=== PATIENT | female | born 1995 | race Caucasian/White ===

== ENCOUNTER 2019-06-23 06:34 | Day surgery (SDC) | payer BC ==
[~2019-06-23 06:34] MED LIST: Lactated Ringers 1,000 ML IV SCH
[2019-06-23] MEDS ORDERED: Midazolam 1 MG/ML 2 ML SDV ONE (06:59)
[2019-06-23] MEDS ORDERED: Propofol 200 MG/20 ML SDV ONE (06:59)
[2019-06-23] MEDS ORDERED: fentaNYL 250 MCG/5 ML SDV ONE ×2 (06:59→08:44)
[2019-06-23] MEDS ORDERED: Glycopyrrolate 0.2 MG/ML SDV ONE (07:00)
[2019-06-23] MEDS ORDERED: Rocuronium 100 MG/10 ML Syringe ONE (07:00)
[2019-06-23] MEDS ORDERED: Ketorolac 30 MG/ML SDV ONE (07:00)
[2019-06-23] MEDS ORDERED: Neostigmine Methylsulfate 1 MG/ML 5 ML Syringe ONE (07:00)
[2019-06-23] MEDS ORDERED: Ondansetron 4 MG/2 ML SDV ONE (07:00)
[2019-06-23] MEDS ORDERED: Dexamethasone 4 MG/ML 5 ML MDV ONE (07:00)
[2019-06-23] MEDS ORDERED: Lidocaine 2% 5 ML SDV ONE ×2 (07:00→07:06)
--- NOTE | 2019-06-23 07:00 | PCM.PREANE ---
Preanesthetic Assessment - Anesthesia/Transfusion/Family Hx Anesthesia History: Prior Anesthesia Without Reaction Family History of Anesthesia Reaction: No Transfusion History: No Prior Transfusion(s) Intubation History: Unknown - Review of Systems General: No Symptoms Pulmonary: No Symptoms Cardiovascular: No Symptoms Gastrointestinal: No Symptoms Neurological: No Symptoms Other: Reports: None - Physical Assessment Height: 5 ft 5 in Weight: 129.274 kg ASA Class: 2 Mental Status: Alert & Oriented x3 Airway Class: Mallampati = 2 Dentition: Reports: Normal Dentition Thyro-Mental Finger Breadths: 3 Mouth Opening Finger Breadths: 3 ROM/Head Extension: Full Lungs: Clear to Auscultation, Normal Respiratory Effort Cardiovascular: Regular Rate, Regular Rhythm - Allergies Allergies/Adverse Reactions: Allergies Allergy/AdvReac Type Severity Reaction Status Date / Time No Known Allergies Allergy Verified 06/19/19 07:55 - Blood Blood Available: No - Anesthesia Plan Pre-Op Medication Ordered: None - Acknowledgements Anesthesia Type Planned: General Anesthesia Pt an Appropriate Candidate for the Planned Anesthesia: Yes Alternatives and Risks of Anesthesia Discussed w Pt/Guardian: Yes Pt/Guardian Understands and Agrees with Anesthesia Plan: Yes PreAnesthesia Questionnaire - Past Health History Medical/Surgical History: Denies Medical/Surgical History HEENT History: Reports: Other (See Below) Other HEENT History: wears glasses Cardiovascular History: Reports: None Respiratory History: Reports: None Gastrointestinal History: Reports: None Genitourinary History: Reports: Renal Calculus Musculoskeletal History: Reports: None Neurological History: Reports: None Psychiatric History: Reports: Depression Endocrine/Metabolic History: Reports: Obesity/BMI 30+ (BMI 47.4) Hematologic History: Reports: None Immunologic History: Reports: None Oncologic (Cancer) History: Reports: None Dermatologic History: Reports: None - Past Surgical History Head Surgeries/Procedures: Reports: None HEENT Surgical History: Reports: Tonsillectomy Cardiovascular Surgical History: Reports: None Respiratory Surgical History: Reports: None GI Surgical History: Reports: None Female Surgical History: Reports: Kidney stone extraction, Ureteral Stent Endocrine Surgical History: Reports: None Neurological Surgical History: Reports: None Musculoskeletal Surgical History: Reports: None Oncologic Surgical History: Reports: None Dermatological Surgical History: Reports: None - SUBSTANCE USE Smoking Status *Q: Never Smoker Recreational Drug Use History: No - HOME MEDS Home Medications: Home Meds Citalopram Hydrobromide [Celexa] 20 mg PO DAILY 06/19/19 [History] l-Norgest/E.estradion-E.estrad [Camrese 0.15-0.03-0.01 MG] 1 tab PO DAILY [History] - CURRENT (IN HOUSE) MEDS Current Meds: Current Medications Lactated Ringer's (Ringers, Lactated) 1,000 mls @ 100 mls/hr IV ASDIRECTED EYAL
[2019-06-23] MEDS ORDERED: Scopolamine 1.5 MG Transdermal Patch TRDERM PRN (07:01)
[2019-06-23] MEDS ORDERED: Fluorescein 5 ML Vial ONE (07:57)
[2019-06-23] MEDS ORDERED: Vasopressin 20 Units/1 ML MDV ONE (07:57)
[2019-06-23] MEDS ORDERED: Bupivacaine 0.25% 10 ML SDV ONE (07:57)
[2019-06-23] MEDS ORDERED: Sugammadex Sodium 200 MG/2 ML VIAL ONE (09:37)
[2019-06-23 10:39] VITALS: BP 138/56; PULSE 112
[2019-06-23] MEDS ORDERED: Acetaminophen/HYDROcodone 325-10 MG Tab PO ONE (10:50)
[2019-06-23] MEDS ORDERED: Acetaminophen/HYDROcodone 325-10 MG Tab ONE (10:52)
--- NOTE | 2019-06-23 12:18 | PCM.OPNOTE ---
- General Post-Op/Procedure Note Date of Surgery/Procedure: 06/23/19 Operative Procedure(s): D & C hysteroscopy. Diagnostic Laparoscopy Findings: Uterus showed polyp in the lower uterine segment Laparoscopy showed martínez endometriotic deposit on the bladder peritoneum X2 Right posterior fossa with 1cm reddish deposit close to right urethra Pre Op Diagnosis: Abnormal Uterine bleeding. Chronic pelvic pain Post-Op Diagnosis: same Anesthesia Technique: General ET Tube Primary Surgeon: Kiya Martinez Secondary Surgeon: Kiya Martinez Anesthesia Provider: Emre Maurice Pathology: Endometrial biopsy and ECC EBL in mLs: 5 Complications: None Condition: Good Free Text/Narrative:: Intake & Output 06/22/19 06/23/19 06/23/19 22:59 06:59 14:59 Intake Total 1300 Output Total 15 Balance 1285
--- NOTE | 2019-06-24 02:23 | OR ---
SURGEON: FREDI NOE DATE OF PROCEDURE:06/23/2019 PREOPERATIVE DIAGNOSES: 1. A 23-year-old para 0 with abnormal uterine bleeding. 2. Chronic pelvic pain. POSTOPERATIVE DIAGNOSES: 1. Abnormal uterine bleeding. 2. Endometrial polyp. 3. Chronic pelvic pain with possible endometriosis. PROCEDURE: Dilatation and curettage, hysteroscopy, Diagnostic laparoscopy. ANESTHESIA: General. IV FLUIDS: 1000. DISTENDING MEDIA: Normal saline. DEFICIT: 225. ESTIMATED BLOOD LOSS: Minimal. URINE OUTPUT: Minimal. SPECIMEN: Endometrial lining and polyp. FINDINGS: Examination under anesthesia revealed a normal-sized anteverted uterus. Normal adnexa. Hysteroscopy showed a small polyp in the lower uterine segment arising from the posterior wall. Bilateral ostia were visualized. Laparoscopy showed normal right and left ovary. There was a slight possible endometriotic deposit in the anterior bladder reflection. In the posterior cul-de-sac there was some brownish reddish deposit , which was close to the left ureter. INDICATION: She is a 23-year-old complaining of pelvic pain which was worse with intercourse and also with periods. She also complains of having abnormal uterine heavy bleeding despite being on OCPs. The patient had an ultrasound done which showed thickened endometrial stripe, suspected possible polyp. She was given the option of female ultrasound versus D and C, hysteroscopy, and wanted to go ahead with the D and C, hysteroscopy . She was also consented for a Diagnostic laparoscopy t evaluate for endometriosis , she was given the opportunity to ask questions and all questions answered. PROCEDURE IN DETAIL: The patient was taken to the operating room, where general anesthesia was performed without difficulty. She was placed in the dorsal lithotomy position with Hima stirrups. An examination under anesthesia revealed a normal anteverted uterus. The patient was prepared and draped in the normal sterile fashion. A bivalved speculum was used to expose the cervix. An Allis was used to grasp the anterior lip of the cervix. The uterus was dilated to accommodate the MyoSure hysteroscope. The MyoSure hysteroscope was placed in under direct visualization. The MyoSure was used to curette the polyp in the posterior uterine wall, and after that the uterus was inspected and noted to be without polyp. Endocervical currettings and endometrial curretting was performed. Uterine manipulator was placed.Then attention was placed to the abdomen where umbilical incision was made after injection of 0.25% Marcaine. then a 5 mm incision was made with a scalpel and expanded with the hemostats. The trocar was placed in the umbilical incision with direct entry. Entry into the peritoneum was confirmed with low pressure. Pneumoperitoneum was obtained up to 15 mmHg of CO2. Then, the patient was placed in Trendelenburg position. A right and left lower quadrant incisions were made 2 fingerbreadths superior to and medial to the anterior superior iliac spine. Trocars were placed in with direct entry. The bowel was retracted from the operative field. The uterus was elevated. The above-noted finding was noted. Due to the proximity of the deposits to vital structures, no biopsy was taken. The pneumoperitoneum was released. The trocars were removed, and the incision was stitched with 3-0 Monocryl. The uterine manipulator was removed. All the instrument and pad counts were correct x2. The patient tolerated the procedure well and was taken to recovery room in stable condition. SINDY MAC /[id number] MTDD
== END 2019-06-23 11:16 | disposition home or self-care (01) ==
LOC: MW.SDS 06:34
PROVIDERS: ATTEND Obstetrics & Gynecology
DX: N84.0 Polyp of corpus uteri (principal); N88.8 Other specified noninflammatory disorders of cervix uteri; Z79.899 Other long term (current) drug therapy
CPT/HCPCS: 36415; 49320; 58558; 84703; 85027; 88305; A9270; J1100; J1885; J2001; J2250; J2405; J2704; J3010; J3490; J7120; 00840

== ENCOUNTER 2019-12-02 16:51 | Emergency (ER) | payer BC ==
[2019-12-02 17:04] VITALS: BP 152/90; PULSE 89
--- NOTE | 2019-12-02 17:51 | EDM.PDOC ---
ED [facility] GENERAL MEDICAL PROBLEM - General Chief Complaint: Abdominal Pain Stated Complaint: ABNOMINAL PAIN Time Seen by Provider: 12/02/19 17:49 Source of Information: Reports: Patient History Limitations: Reports: No Limitations - History of Present Illness INITIAL COMMENTS - FREE TEXT/NARRATIVE: Patient is a 24-year-old female with a past medical history of obesity presenting with a chief complaint of lower pelvic cramping. Duration of symptoms of been 2 days. Patient reports associated spotting. No radiation of symptoms. Patient states she was found to be last week about 5 weeks . Patient states this is her first child. Patient denies any fevers, chills, vaginal discharge. Patient has not had a prior ultrasound. Patient denies any urinary symptoms. In addition to that documented in the HPI above, the additional ROS was obtained : Constitutional: Denies fevers or chills Eyes: Denies vision changes ENMT: Denies sore throat CV: Denies chest pain Resp: Denies SOB GI: Denies vomiting or diarrhea : Denies painful urination MSK: Denies recent trauma Skin: Denies new rashes Neuro: Denies new numbness or tingling or weakness Endocrine: Denies unexpected weight loss Heme: Denies bleeding disorders I have reviewed the triage vital signs Const: Well nourished, well developed, appears stated age Eyes: PERRL, no conjunctival injection HENT: NCAT, Neck supple without meningismus CV: RRR, Warm, well-perfused extremities RESP: CTAB, Unlabored respiratory effort GI: soft, non-tender, non-distended, no masses MSK: No gross deformities appreciated Skin: Warm, dry. No rashes Neuro: Alert, shoe salesman II-XII grossly intact. Sensation and motor function of extremities grossly intact. Psych: Appropriate mood and affect Assessment and plan Patient is a 24-year-old female with a chief complaint of lower pelvic pain. Patient labs and ultrasound demonstrate early IUP. Given that the patient is approximately 5 weeks lack of heart rate may be within normal limits. Patient will need repeat ultrasound and hCG levels to rule out threatened . Patient given return precautions and instructions to follow-up with SEPARATOR OPERATOR. All questions addressed and answered. Patient agrees with plan Abdomen Pain Score (Numeric/FACES): 5 - Related Data Allergies Allergy/AdvReac Type Severity Reaction Status Date / Time No Known Allergies Allergy Verified 06/19/19 07:55 Home Meds: Home Meds . [No Known Home Meds] 12/02/19 [History] Past Medical History - Past Health History Medical/Surgical History: Denies Medical/Surgical History HEENT History: Reports: Other (See Below) Other HEENT History: wears glasses Cardiovascular History: Reports: None Respiratory History: Reports: None Gastrointestinal History: Reports: None Genitourinary History: Reports: Renal Calculus Musculoskeletal History: Reports: None Neurological History: Reports: None Psychiatric History: Reports: Depression Endocrine/Metabolic History: Reports: Obesity/BMI 30+ Hematologic History: Reports: None Immunologic History: Reports: None Oncologic (Cancer) History: Reports: None Dermatologic History: Reports: None - Past Surgical History Head Surgeries/Procedures: Reports: None HEENT Surgical History: Reports: Tonsillectomy Cardiovascular Surgical History: Reports: None Respiratory Surgical History: Reports: None GI Surgical History: Reports: None Female Surgical History: Reports: Kidney stone extraction, Ureteral Stent Endocrine Surgical History: Reports: None Neurological Surgical History: Reports: None Musculoskeletal Surgical History: Reports: None Oncologic Surgical History: Reports: None Dermatological Surgical History: Reports: None Social & Family History - Tobacco Use Smoking Status *Q: Never Smoker Second Hand Smoke Exposure: No - Caffeine Use Caffeine Use: Reports: None - Recreational Drug Use Recreational Drug Use: No ED ROS GENERAL - Review of Systems Review Of Systems: See Below ED EXAM, GI/ABD - Physical Exam Exam: See Below Course - Vital Signs Last Recorded V/S: Last Vital Signs Temp 35.7 C 12/02/19 17:03 Pulse 89 12/02/19 17:03 Resp 18 12/02/19 17:03 BP 152/90 H 12/02/19 17:03 Pulse Ox 98 12/02/19 17:03 - Orders/Labs/Meds Labs: Laboratory Tests 12/02/19 12/02/19 12/02/19 Range/Units 18:04 18:04 18:04 WBC 10.80 (4.0-11.0) K/uL RBC 4.47 (4.30-5.90) M/uL Hgb 13.5 (12.0-16.0) g/dL Hct 41.1 (36.0-46.0) % MCV 91.9 (80.0-98.0) fL MCH 30.2 (27.0-32.0) pg MCHC 32.8 (31.0-37.0) g/dL RDW Std Deviation 45.5 (28.0-62.0) fl RDW Coeff of Nikki 14 (11.0-15.0) % Plt Count 310 (150-400) K/uL MPV 9.90 (7.40-12.00) fL Neut % (Auto) 74.6 (48.0-80.0) % Lymph % (Auto) 19.5 (16.0-40.0) % [place] % (Auto) 5.2 (0.0-15.0) % Eos % (Auto) 0.6 (0.0-7.0) % Baso % (Auto) 0.1 (0.0-1.5) % Neut # (Auto) 8.1 H (1.4-5.7) K/uL Lymph # (Auto) 2.1 (0.6-2.4) K/uL [place] # (Auto) 0.6 (0.0-0.8) K/uL Eos # (Auto) 0.1 (0.0-0.7) K/uL Baso # (Auto) 0.0 (0.0-0.1) K/uL Nucleated RBC % 0.0 /100WBC Nucleated RBCs # 0 K/uL Sodium 137 (136-145) mmol/L Potassium 3.9 (3.5-5.1) mmol/L Chloride 102 (98-107) mmol/L Carbon Dioxide 24.0 (21.0-32.0) mmol/L BUN 9 (7.0-18.0) mg/dL Creatinine 0.7 (0.6-1.0) mg/dL Est Cr Clr Drug Dosing 107.93 mL/min Estimated GFR (MDRD) > 60.0 ml/min Glucose 95 (74-106) mg/dL Calcium 9.4 (8.5-10.1) mg/dL Total Bilirubin 0.4 (0.2-1.0) mg/dL AST 22 (15-37) IU/L ALT 47 (14-63) IU/L Alkaline Phosphatase 91 (46-116) U/L Total Protein 8.3 H (6.4-8.2) g/dL Albumin 4.1 (3.4-5.0) g/dL Globulin 4.2 H (2.6-4.0) g/dL Albumin/Globulin Ratio 1.0 (0.9-1.6) HCG, Quant 4253.0 mIU/mL Blood Type Antibody Screen 12/02/19 Range/Units 18:04 WBC (4.0-11.0) K/uL RBC (4.30-5.90) M/uL Hgb (12.0-16.0) g/dL Hct (36.0-46.0) % MCV (80.0-98.0) fL MCH (27.0-32.0) pg MCHC (31.0-37.0) g/dL RDW Std Deviation (28.0-62.0) fl RDW Coeff of Nikki (11.0-15.0) % Plt Count (150-400) K/uL MPV (7.40-12.00) fL Neut % (Auto) (48.0-80.0) % Lymph % (Auto) (16.0-40.0) % [place] % (Auto) (0.0-15.0) % Eos % (Auto) (0.0-7.0) % Baso % (Auto) (0.0-1.5) % Neut # (Auto) (1.4-5.7) K/uL Lymph # (Auto) (0.6-2.4) K/uL [place] # (Auto) (0.0-0.8) K/uL Eos # (Auto) (0.0-0.7) K/uL Baso # (Auto) (0.0-0.1) K/uL Nucleated RBC % /100WBC Nucleated RBCs # K/uL Sodium (136-145) mmol/L Potassium (3.5-5.1) mmol/L Chloride (98-107) mmol/L Carbon Dioxide (21.0-32.0) mmol/L BUN (7.0-18.0) mg/dL Creatinine (0.6-1.0) mg/dL Est Cr Clr Drug Dosing mL/min Estimated GFR (MDRD) ml/min Glucose (74-106) mg/dL Calcium (8.5-10.1) mg/dL Total Bilirubin (0.2-1.0) mg/dL AST (15-37) IU/L ALT (14-63) IU/L Alkaline Phosphatase (46-116) U/L Total Protein (6.4-8.2) g/dL Albumin (3.4-5.0) g/dL Globulin (2.6-4.0) g/dL Albumin/Globulin Ratio (0.9-1.6) HCG, Quant mIU/mL Blood Type O NEGATIVE Antibody Screen NEGATIVE Departure - Departure Time of Disposition: 19:30 Disposition: Home, Self-Care 01 Clinical Impression: Abdominal pain - Discharge Information Instructions: Abdominal Pain, Adult, [id number] Referrals: Dayna Wylie DO [Primary Care Provider] - Forms: ED Department Discharge Additional Instructions: The following information is given to patients seen in the emergency department who are being discharged to home. This information is to outline your options for follow-up care. We provide all patients seen in our emergency department with a follow-up referral. The need for follow-up, as well as the timing and circumstances, are variable depending upon the specifics of your emergency department visit. If you don't have a primary care physician on staff, we will provide you with a referral. We always advise you to contact your personal physician following an emergency department visit to inform them of the circumstance of the visit and for follow-up with them and/or the need for any referrals to a consulting specialist. The emergency department will also refer you to a specialist when appropriate. This referral assures that you have the opportunity for follow-up care with a specialist. All of these measure are taken in an effort to provide you with optimal care, which includes your follow-up. Under all circumstances we always encourage you to contact your private physician who remains a resource for coordinating your care. When calling for follow-up care, please make the office aware that this follow-up is from your recent emergency room visit. If for any reason you are refused follow-up, please contact the [facility] Emergency Department at and asked to speak to the emergency department charge nurse. Sepsis Event Note - Evaluation Sepsis Screening Result: No Definite Risk - Focused Exam Date Exam was Performed: 12/03/19 Time Exam was Performed: 15:58
[2019-12-02 18:59] LABS: BLOOD UREA NITROGEN,BUN 9 mg/dL (7.0-18.0); CHLORIDE,CL 102 mmol/L (98-107); GLUCOSE RANDOM 95 mg/dL (74-106); POTASSIUM,K 3.9 mmol/L (3.5-5.1); SODIUM,NA 137 mmol/L (136-145)
--- NOTE | 2019-12-02 19:28 | US ---
1st trimester obstetrical ultrasound: Multiple real-time images were obtained transvaginally. Comparison: No previous study for current . Dates: LMP: LMP given as 09/26/19, MARIANN 07/02/20, gestational age 9 weeks 4 days Current ultrasound: MARIANN 08/02/20, gestational age 5 weeks 1 day Findings: Single intrauterine gestational sac is seen. Small subchorionic hemorrhage is noted. Maternal left and right ovaries are unremarkable. No heart activity seen at this time. Impression: 1. Small gestational sac with age of 5 weeks 1 day. 2. No heart activity is seen at this time which is not unusual at this gestational age. Follow-up study could be considered in 11 days to further evaluate. 3. Small subchorionic hemorrhage possibly due to implantation bleed. Diagnostic code #2 This report was dictated in [place] Standard Time
== END 2019-12-02 19:50 | disposition home or self-care (01) ==
LOC: MW.ED 16:51
DX: O99.89 Other specified diseases and conditions complicating pregnancy, childbirth and the puerperium (principal); R10.9 Unspecified abdominal pain; Z3A.01 Less than 8 weeks gestation of pregnancy
CPT/HCPCS: 36415; 76817; 76817-26; 80053; 84702; 85025; 86850; 86900; 86901; 99284-25

== ENCOUNTER 2020-06-04 14:18 | Emergency (ER) | payer BC ==
--- NOTE | 2020-06-04 15:39 | EDM.PDOC ---
ED [facility] GENERAL MEDICAL PROBLEM - General Chief Complaint: Lower Extremity Injury/Pain Stated Complaint: LT LEG PAIN Time Seen by Provider: 06/04/20 15:02 - History of Present Illness INITIAL COMMENTS - FREE TEXT/NARRATIVE: History of present illness: Patient presents with left leg pain that is been going on for 3 months she has seen a regular doctor but has not gotten any better she denies any back pain but she does have pain radiating from the buttocks down the lateral aspect of the thigh to just above the knee no difficulty voiding nothing seems to make it better or worse she denies any fevers or chills no recent injuries. She tried steroids but this has not helped her she has not followed up with her regular doctor. Review of systems: As per history of present illness and below otherwise all systems reviewed and negative. Past medical history: As per history of present illness and as reviewed below otherwise noncontributory. Surgical history: As per history of present illness and as reviewed below otherwise noncontributory. Social history: No reported history of drug or alcohol abuse. Family history: As per history of present illness and as reviewed below otherwise noncontributory. Physical exam: HEENT: Atraumatic, normocephalic, pupils reactive, negative for conjunctival pallor or scleral icterus, mucous membranes moist, throat clear, neck supple, nontender, trachea midline. Lungs: Clear to auscultation, breath sounds equal bilaterally, chest nontender. Heart: S1S2, regular, negative for clicks, rubs, or JVD. Abdomen: Soft, nondistended, nontender. Negative for masses or hepatosplenomega ly. Negative for costovertebral tenderness. Pelvis: Stable nontender. Genitourinary: Deferred. Rectal: Deferred. Extremities: Atraumatic, negative for cords or calf pain. Neurovascular unremarkable. There is tenderness over the piriformis muscle on the left side. Neuro: Awake, alert, oriented. Cranial nerves II through XII unremarkable. Cerebellum unremarkable. Motor and sensory unremarkable throughout. Exam nonfocal. There is no saddle anesthesia great toe strength 5 out of 5 Back: There is no midline tenderness there is no paraspinal spasm or tenderness. Diagnostics: [] Therapeutics: [] Impression: [] Plan: Steroids gabapentin Tylenol for pain follow-up with primary care [] Definitive disposition and diagnosis as appropriate pending reevaluation and review of above. left leg Pain Score (Numeric/FACES): 8 - Related Data Allergies Allergy/AdvReac Type Severity Reaction Status Date / Time No Known Allergies Allergy Verified 06/04/20 14:57 Home Meds: Home Meds Gabapentin [Neurontin] 300 mg PO TID #30 cap 06/04/20 [Rx] desogestreL-ethinyl estradioL [Juleber 28 Day Tablet] 1 each PO DAILY 06/04/20 [History] predniSONE 60 mg PO WITHBREAKFAST 5 Days #15 tab 06/04/20 [Rx] Past Medical History - Past Health History Medical/Surgical History: Denies Medical/Surgical History HEENT History: Reports: Other (See Below) Other HEENT History: wears glasses Cardiovascular History: Reports: None Respiratory History: Reports: None Gastrointestinal History: Reports: None Genitourinary History: Reports: Renal Calculus Musculoskeletal History: Reports: None Neurological History: Reports: None Psychiatric History: Reports: Depression Endocrine/Metabolic History: Reports: Obesity/BMI 30+ Hematologic History: Reports: None Immunologic History: Reports: None Oncologic (Cancer) History: Reports: None Dermatologic History: Reports: None - Infectious Disease History Infectious Disease History: Reports: None - Past Surgical History Head Surgeries/Procedures: Reports: None HEENT Surgical History: Reports: Tonsillectomy Cardiovascular Surgical History: Reports: None Respiratory Surgical History: Reports: None GI Surgical History: Reports: None Female Surgical History: Reports: Kidney stone extraction, Ureteral Stent Endocrine Surgical History: Reports: None Neurological Surgical History: Reports: None Musculoskeletal Surgical History: Reports: None Oncologic Surgical History: Reports: None Dermatological Surgical History: Reports: None Social & Family History - Family History Family Medical History: Noncontributory - Tobacco Use Smoking Status *Q: Never Smoker - Caffeine Use Caffeine Use: Reports: None - Recreational Drug Use Recreational Drug Use: No Review of Systems - Review of Systems Review Of Systems: See Below ED EXAM, GENERAL - Physical Exam Exam: See Below Course - Vital Signs Text/Narrative:: Patient presents with sciatic do not see any signs of syndrome spinal cord injury of any kind. She will be discharged home on gabapentin steroids follow- up with primary care for her chronic pain condition I spent several minutes instructing the patient on how to perform osteopathic manual treatment for her sciatica in order to resolve the issue. Last Recorded V/S: Last Vital Signs Temp 37.1 C 07/10/20 14:53 Pulse 100 06/04/20 14:53 Resp 18 06/04/20 14:53 BP 147/83 H 06/04/20 14:53 Pulse Ox 99 06/04/20 14:53 Departure - Departure Time of Disposition: 15:35 Disposition: Home, Self-Care 01 Condition: Good Clinical Impression: Sciatica, Chronic pain - Discharge Information *PRESCRIPTION DRUG MONITORING PROGRAM REVIEWED*: Not Applicable *COPY OF PRESCRIPTION DRUG MONITORING REPORT IN PATIENT LEONELA: Not Applicable Instructions: Sciatica, [id number] Referrals: Dayna Wylie DO [Primary Care Provider] - Additional Instructions: The following information is given to patients seen in the emergency department who are being discharged to home. This information is to outline your options for follow-up care. We provide all patients seen in our emergency department with a follow-up referral. The need for follow-up, as well as the timing and circumstances, are variable depending upon the specifics of your emergency department visit. If you don't have a primary care physician on staff, we will provide you with a referral. We always advise you to contact your personal physician following an emergency department visit to inform them of the circumstance of the visit and for follow-up with them and/or the need for any referrals to a consulting specialist. The emergency department will also refer you to a specialist when appropriate. This referral assures that you have the opportunity for follow-up care with a specialist. All of these measure are taken in an effort to provide you with optimal care, which includes your follow-up. Under all circumstances we always encourage you to contact your private physician who remains a resource for coordinating your care. When calling for follow-up care, please make the office aware that this follow-up is from your recent emergency room visit. If for any reason you are refused follow-up, please contact the [facility] Emergency Department at and asked to speak to the emergency department charge nurse. Sepsis Event Note (ED) - Evaluation Sepsis Screening Result: No Definite Risk - Focused Exam Vital Signs: Vital Signs Temp Pulse Resp BP Pulse Ox 06/04/20 14:53 37.1 C 100 18 147/83 H 99
[2020-06-04 16:09] VITALS: BP 127/80; PULSE 98
== END 2020-06-04 16:11 | disposition home or self-care (01) ==
LOC: MW.ED 14:18
DX: M54.32 Sciatica, left side (principal); E66.9 Obesity, unspecified; Z68.41 Body mass index [BMI] 40.0-44.9, adult; Z79.899 Other long term (current) drug therapy
CPT/HCPCS: 99283

== ENCOUNTER 2023-01-11 20:18 | Emergency (ER) | payer BC ==
[2023-01-11] MEDS ORDERED: Ketorolac 30 MG/ML SDV IVPUSH ONE (20:49)
[2023-01-11] MEDS ORDERED: Lactated Ringers 1,000 ML IV STA (20:49)
[2023-01-11 21:21] LABS: CARBON DIOXIDE,CO2 22.9 mmol/L (21.0-32.0); POTASSIUM,K 3.7 mmol/L (3.5-5.1)
[2023-01-11] MEDS ORDERED: Tamsulosin 0.4 MG Cap.ER PO ONE (21:55)
[2023-01-11 22:50] VITALS: BP 125/84; PULSE 79
== END 2023-01-11 22:45 | disposition home or self-care (01) ==
LOC: MW.ED 20:18
DX: N13.2 Hydronephrosis with renal and ureteral calculous obstruction (principal); E66.9 Obesity, unspecified; Z68.30 Body mass index [BMI] 30.0-30.9, adult
CPT/HCPCS: 36415; 74176; 80053; 81001; 81025; 85025; 96361; 96374; 99284; A9270; J1885; J7120

== ENCOUNTER 2024-01-09 20:25 | Emergency (ER) | payer BC ==
[2024-01-09 21:15] LABS: APPEARANCE,URINE CLEAR; BILIRUBIN,URINE NEGATIVE (NEGATIVE); COLOR,URINE YELLOW; GLUCOSE,URINE NEGATIVE (NEGATIVE); KETONES,URINE NEGATIVE (NEGATIVE); LEUKOCYTE ESTERASE,URINE NEGATIVE (NEGATIVE); NITRITE,URINE NEGATIVE (NEGATIVE); OCCULT BLOOD,URINE NEGATIVE (NEGATIVE); PROTEIN,URINE NEGATIVE (NEGATIVE); UROBILINOGEN,URINE 0.2 EU/dL (<2.0)
[2024-01-09 21:38] VITALS: BP 142/89; PULSE 81
== END 2024-01-09 21:37 | disposition home or self-care (01) ==
LOC: MW.ED 20:25
DX: O99.891 Other specified diseases and conditions complicating pregnancy (principal); M54.9 Dorsalgia, unspecified; E66.9 Obesity, unspecified; Z68.41 Body mass index [BMI] 40.0-44.9, adult; Z3A.15 15 weeks gestation of pregnancy
CPT/HCPCS: 81003; 81025; 99282; 99283

== ENCOUNTER 2024-06-15 16:14 | Inpatient (IN) | payer BC ==
[2024-06-15 17:29] LABS: HEMATOCRIT 32.6 % (37.0-47.0); HEMOGLOBIN 11.1 g/dL (12.0-16.0); MEAN CORPUSCULAR VOLUME 91.1 fL (83.0-99.0); MEAN PLATELET VOLUME 9.2 fL (9.4-12.3); PLATELET COUNT,PLT 230 K/uL (150-400); RED BLOOD CELL COUNT 3.58 M/uL (4.10-5.30); WHITE BLOOD CELL COUNT,WBC 11.75 K/uL (3.9-11.3)
[2024-06-15 18:02] LABS: A/G RATIO 0.6 (0.9-1.6); ALBUMIN 2.6 g/dL (3.4-5.0); BILIRUBIN TOTAL 0.2 mg/dL (0.2-1.0); CALCIUM 9.4 mg/dL (8.5-10.1); CARBON DIOXIDE,CO2 25.9 mmol/L (21.0-32.0); CREATININE 0.6 mg/dL (0.6-1.0); EST CRCL DRUG DOSING (CG) 126.73 mL/min; POTASSIUM,K 4.1 mmol/L (3.5-5.1); PROTEIN TOTAL,TP 6.9 g/dL (6.4-8.2); URIC ACID 3.7 mg/dL (2.6-7.2)
[2024-06-15 18:44] LABS: APPEARANCE,URINE CLEAR; BILIRUBIN,URINE NEGATIVE (NEGATIVE); COLOR,URINE YELLOW; GLUCOSE,URINE NEGATIVE (NEGATIVE); KETONES,URINE NEGATIVE (NEGATIVE); LEUKOCYTE ESTERASE,URINE NEGATIVE (NEGATIVE); NITRITE,URINE NEGATIVE (NEGATIVE); OCCULT BLOOD,URINE NEGATIVE (NEGATIVE); PROTEIN,URINE NEGATIVE (NEGATIVE); UROBILINOGEN,URINE 0.2 EU/dL (<2.0)
[2024-06-15] MEDS ORDERED: Sodium Chloride 0.9% 20 ML SDV IV PRN (20:04)
[2024-06-15] MEDS ORDERED: Carboprost Tromethamine 250 MCG/1 mL Vial IM PRN (20:04)
[2024-06-15] MEDS ORDERED: Sodium Chloride 0.9% 2.5 ML Syringe FLUSH PRN (20:04)
[2024-06-15] MEDS ORDERED: Misoprostol 200 MCG Tab PO PRN (20:04)
[2024-06-15] MEDS ORDERED: Water For Irrigation,Sterile 1,000 ML Container IRR PRN (20:04)
[2024-06-15] MEDS ORDERED: Sodium Chloride 0.9% 10 ML Syringe FLUSH PRN (20:04)
[2024-06-15] MEDS ORDERED: Methylergonovine 0.2 MG/1 ML Amp IM PRN (20:04)
[2024-06-15] MEDS ORDERED: Lidocaine 1% 50 ML MDV INJECT PRN (20:04)
[2024-06-15] MEDS ORDERED: Tranexamic Acid IN NACL,ISO-OS 1,000 MG in Premix Bag 1 BAG IV PRN (20:04)
[2024-06-15] MEDS ORDERED: Butorphanol 2 MG/ML SDV IVPUSH PRN (20:04)
[2024-06-15] MEDS: Misoprostol 25 MCG (1/4 of 100 MCG) Tab VAG PRN (22:02)
[2024-06-16] MEDS: Misoprostol 25 MCG (1/4 of 100 MCG) Tab VAG PRN (02:11)
[2024-06-16] MEDS ORDERED: ePHEDrine 50 MG/ML SDV IVPUSH PRN ×2 (05:14)
[2024-06-16] MEDS ORDERED: Phenylephrine HCl In 0.9% NaCl 1 MG/10 ML Syringe IVPUSH PRN (05:14)
[2024-06-16] MEDS ORDERED: dexmedeTOMIDine HCl 200 MCG/2 ML SDV EPIDUR SCH (05:15)
[2024-06-16] MEDS: Lactated Ringers 1,000 ML IV SCH (16:15)
[2024-06-16] MEDS: Oxytocin/0.9 % Sodium Chloride 30 UNIT/500 ML BAG IV SCH (16:25)
[2024-06-16] MEDS: Ropivacaine HCl/PF 400 MG in Premix Bag 1 BAG EPIDUR SCH (20:36)
[2024-06-17] MEDS ORDERED: Ondansetron 4 MG/2 ML SDV IVPUSH PRN (18:00)
[2024-06-17] MEDS ORDERED: oxyCODONE 5 MG Tab PO PRN (19:29)
[2024-06-17] MEDS ORDERED: Docusate Sodium 100 MG Cap PO PRN (19:29)
[2024-06-17] MEDS ORDERED: Acetaminophen 500 MG Tab PO PRN (19:29)
[2024-06-17] MEDS: Oxytocin/0.9 % Sodium Chloride 30 UNIT/500 ML BAG IV SCH (19:50)
[2024-06-17 20:01] LABS: PH,UMBILICAL ARTERIAL 7.24 (7.18-7.38); PH,UMBILICAL VENOUS 7.293 (7.25-7.45)
[2024-06-17] MEDS: Ibuprofen 800 MG Tab PO PRN (21:17)
[2024-06-17] MEDS: Benzocaine/Menthol 20%-0.5% Spray 78 GM Cannister TOP PRN (21:18)
[2024-06-17] MEDS: Lanolin 100% Cream 7 GM Tube TOP PRN (21:18)
[2024-06-17] MEDS: Witch Hazel Medicated Pads 40/Jar TOP PRN (21:18)
[2024-06-18 05:45] LABS: HEMATOCRIT 28.4 % (37.0-47.0); HEMOGLOBIN 9.6 g/dL (12.0-16.0)
[2024-06-18 19:53] VITALS: PULSE 82
[2024-06-18 20:32] VITALS: BP 137/76
== END 2024-06-18 21:10 | disposition home or self-care (01) | DRG 560 ==
LOC: MW.OBCHECK 16:14 → MW.OB 16:15 → MW.OBCHECK 21:48 → OBSVTOIN 06-17 21:38 → MW.OB 06-17 21:39
PROVIDERS: ADMIT Obstetrics & Gynecology; ATTEND Obstetrics & Gynecology
PROC: 10E0XZZ Delivery of Products of Conception, External Approach (ICD-10-PCS; principal; 2024-06-17)
PROC: 10907ZC Drainage of Amniotic Fluid, Therapeutic from Products of Conception, Via Natural or Artificial Opening (ICD-10-PCS; 2024-06-17)
PROC: 3E033VJ Introduction of Other Hormone into Peripheral Vein, Percutaneous Approach (ICD-10-PCS; 2024-06-17)
PROC: 10H07YZ Insertion of Other Device into Products of Conception, Via Natural or Artificial Opening (ICD-10-PCS; 2024-06-17)
PROC: 3E0P7VZ Introduction of Hormone into Female Reproductive, Via Natural or Artificial Opening (ICD-10-PCS; 2024-06-17)
PROC: 3E0R3BZ Introduction of Anesthetic Agent into Spinal Canal, Percutaneous Approach (ICD-10-PCS; 2024-06-17)
PROC: 00HU33Z Insertion of Infusion Device into Spinal Canal, Percutaneous Approach (ICD-10-PCS; 2024-06-17)
PROC: 0HQ9XZZ Repair Perineum Skin, External Approach (ICD-10-PCS; 2024-06-17)
PROC: 3E0334Z Introduction of Serum, Toxoid and Vaccine into Peripheral Vein, Percutaneous Approach (ICD-10-PCS; 2024-06-17)
DX: O13.4 Gestational [pregnancy-induced] hypertension without significant proteinuria, complicating childbirth (principal); O26.893 Other specified pregnancy related conditions, third trimester; O99.214 Obesity complicating childbirth; O70.0 First degree perineal laceration during delivery; Z67.41 Type O blood, Rh negative; Z3A.37 37 weeks gestation of pregnancy; Z37.0 Single live birth
CPT/HCPCS: 36415; 36430; 51702; 59025; 59409; 80053; 81003; 82803; 84550; 85014; 85018; 85027; 85460; 86592; 86850; 86900; 86901; A9270-GY; J2590; J2790; J2795; J7120